=== PATIENT | female | born 1990 | race Caucasian/White ===

== ENCOUNTER 2018-04-21 06:10 | Emergency (ER) | payer MEDICAID, OTHER ==
[~2018-04-21] VITALS: Ht 152.4 cm; Wt 44.0 kg
[~2018-04-21 06:10] MED LIST: ACE325RS; AZIT200S
[2018-04-21 06:30] VITALS: BP 105/70
[2018-04-21] MEDS ORDERED: KETOROLAC TROMETH 60MG/2ML VIAL IM ONE (07:15)
== END 2018-04-21 07:58 | disposition home or self-care (01) ==
LOC: ER 06:10
DX: S80.02XA Contusion of left knee, initial encounter (principal); F17.210 Nicotine dependence, cigarettes, uncomplicated; Z79.899 Other long term (current) drug therapy; Z88.1 Allergy status to other antibiotic agents; Z88.8 Allergy status to other drugs, medicaments and biological substances; W22.8XXA Striking against or struck by other objects, initial encounter; Y93.89 Activity, other specified; Y99.8 Other external cause status; Y92.89 Other specified places as the place of occurrence of the external cause
CPT/HCPCS: 73562; 96372; 99284; J1885

== ENCOUNTER 2018-09-12 18:02 | Emergency (ER) | payer MEDICAID ==
[~2018-09-12] VITALS: Ht 152.4 cm; Wt 40.8 kg
[2018-09-12 18:08] VITALS: BP 135/87
[2018-09-12] MEDS ORDERED: LORazepam 0.5 MG TAB ONE (18:14)
[2018-09-12] MEDS ORDERED: LORazepam 0.5 MG TAB PO ONE (18:15)
== END 2018-09-12 19:32 | disposition home or self-care (01) ==
LOC: ER 18:03
DX: F41.1 Generalized anxiety disorder (principal); F45.8 Other somatoform disorders; F17.210 Nicotine dependence, cigarettes, uncomplicated; Z88.1 Allergy status to other antibiotic agents; Z88.8 Allergy status to other drugs, medicaments and biological substances; Z79.899 Other long term (current) drug therapy
CPT/HCPCS: 93005

== ENCOUNTER 2018-12-09 01:22 | Emergency (ER) | payer MEDICAID ==
[~2018-12-09] VITALS: Ht 152.4 cm; Wt 42.2 kg
[2018-12-09 01:29] VITALS: BP 117/78
== END 2018-12-09 02:23 | disposition left against medical advice (07) ==
LOC: ER 01:26
DX: F41.9 Anxiety disorder, unspecified (principal); Z53.21 Procedure and treatment not carried out due to patient leaving prior to being seen by health care provider

== ENCOUNTER 2019-01-02 15:43 | Emergency (ER) | payer MEDICAID ==
[~2019-01-02] VITALS: Ht 152.4 cm; Wt 40.8 kg
[2019-01-02 16:39] LABS: Basophils # (auto) 0.1 uL; Basophils % (auto) 0.8 % (0.0-2.0); Eosinophils # (auto) 0.3 uL; Eosinophils % (auto) 3.5 % (0.0-7.0); Hematocrit 42.4 % (36.0-46.0); Hemoglobin 14.4 g/dL (12.2-16.2); Lymphocytes % (auto) 25.8 % (10.0-50.0); Mean Corpuscular Hemoglobin 30.5 pg (28.0-32.0); Mean Corpuscular Volume 89.8 fL (80.0-100.0); Monocytes # (auto) 0.5 uL; Monocytes % (auto) 6.3 % (0.0-12.0); Neutrophils % (auto) 63.6 % (37.0-80.0); Platelet Count (auto) 302 10^3/uL (140-450); Red Blood Cells 4.73 10^6/uL (4.0-5.20); White Blood Cell 7.8 10^3/uL (4.4-10.8)
[2019-01-02 16:54] LABS: Albumin 3.8 g/dL (3.4-5.0); Calcium 9.1 mg/dL (8.5-10.1); Potassium 3.5 mmol/L (3.5-5.1)
[2019-01-02 16:57] LABS: BUN/Creatinine Ratio 13.9; Bilirubin, Total 0.3 mg/dL (0.2-1.0); Total Protein 7.8 g/dL (6.4-8.2)
[2019-01-02 18:49] VITALS: BP 102/69
[2019-01-02] MEDS ORDERED: BACLOFEN 10 MG TAB PO ONE (19:15)
[2019-01-02] MEDS ORDERED: ACETAMINOPHEN/CODEINE#3 (300/30mg) TAB PO ONE (19:15)
== END 2019-01-02 19:40 | disposition home or self-care (01) ==
LOC: ER 15:43
DX: S06.0X0A Concussion without loss of consciousness, initial encounter (principal); F17.210 Nicotine dependence, cigarettes, uncomplicated; Z88.1 Allergy status to other antibiotic agents; Z88.8 Allergy status to other drugs, medicaments and biological substances; W22.8XXA Striking against or struck by other objects, initial encounter; Y93.89 Activity, other specified; Y99.8 Other external cause status; Y92.89 Other specified places as the place of occurrence of the external cause
CPT/HCPCS: 36415; 70450; 80053; 84702; 85025

== ENCOUNTER 2019-03-14 12:47 | Emergency (ER) | payer MEDICAID ==
[~2019-03-14] VITALS: Ht 152.4 cm; Wt 42.8 kg
[2019-03-14 14:11] LABS: Urine Bacteria NONE SEEN /hpf (None Seen); Urine Blood Negative /uL (Negative); Urine Specific Gravity 1.012 (1.001-1.035); Urine WBC 4 /hpf (0 - 5)
[2019-03-14 14:51] LABS: Basophils # (auto) 0.1 uL; Basophils % (auto) 0.8 % (0.0-2.0); Eosinophils # (auto) 0.2 uL; Eosinophils % (auto) 2.3 % (0.0-7.0); Hematocrit 41.3 % (36.0-46.0); Hemoglobin 14.3 g/dL (12.2-16.2); Lymphocytes # (auto) 1.9 uL; Lymphocytes % (auto) 19.4 % (10.0-50.0); Mean Corpuscular Hemoglobin 30.6 pg (28.0-32.0); Mean Corpuscular Hgb Conc. 34.5 g/dL (32.0-36.0); Mean Corpuscular Volume 88.6 fL (80.0-100.0); Monocytes # (auto) 0.5 uL; Neutrophils % (auto) 72.5 % (37.0-80.0); Platelet Count (auto) 326 10^3/uL (140-450); Red Blood Cells 4.67 10^6/uL (4.0-5.20); Red Cell Distribution Width 13.3 % (11.8-14.3); White Blood Cell 9.6 10^3/uL (4.4-10.8)
[2019-03-14 14:52] VITALS: BP 107/65
[2019-03-14 15:17] LABS: Albumin 3.9 g/dL (3.4-5.0); Calcium 9.8 mg/dL (8.5-10.1); Potassium 3.9 mmol/L (3.5-5.1)
[2019-03-14 15:20] LABS: Bilirubin, Total 0.2 mg/dL (0.2-1.0); Total Protein 7.9 g/dL (6.4-8.2)
== END 2019-03-14 16:09 | disposition home or self-care (01) ==
LOC: ER 12:47
DX: R10.84 Generalized abdominal pain (principal); R11.2 Nausea with vomiting, unspecified; Z87.891 Personal history of nicotine dependence; Z88.1 Allergy status to other antibiotic agents
CPT/HCPCS: 36415; 74018; 80053; 81001; 81025; 84702; 85025

== ENCOUNTER 2019-04-25 07:42 | Emergency (ER) | payer MEDICAID ==
[~2019-04-25] VITALS: Ht 154.9 cm; Wt 44.0 kg
[2019-04-25 07:48] VITALS: BP 122/64
== END 2019-04-25 09:11 | disposition home or self-care (01) ==
LOC: ER 07:44
DX: S90.31XA Contusion of right foot, initial encounter (principal); F17.210 Nicotine dependence, cigarettes, uncomplicated; Z88.8 Allergy status to other drugs, medicaments and biological substances; Z88.1 Allergy status to other antibiotic agents; X58.XXXA Exposure to other specified factors, initial encounter; Y93.89 Activity, other specified; Y92.89 Other specified places as the place of occurrence of the external cause; Y99.8 Other external cause status
CPT/HCPCS: 73630

== ENCOUNTER 2019-08-25 11:42 | Emergency (ER) | payer MEDICAID ==
[~2019-08-25] VITALS: Ht 152.4 cm; Wt 45.4 kg
[2019-08-25 11:58] VITALS: BP 145/79
[2019-08-25] MEDS ORDERED: KETOROLAC TROMETH 60MG/2ML VIAL IM ONE (12:45)
== END 2019-08-25 13:10 | disposition home or self-care (01) ==
LOC: ER 11:42
DX: S16.1XXA Strain of muscle, fascia and tendon at neck level, initial encounter (principal); S29.012A Strain of muscle and tendon of back wall of thorax, initial encounter; Z87.891 Personal history of nicotine dependence; Z88.1 Allergy status to other antibiotic agents; Z88.8 Allergy status to other drugs, medicaments and biological substances; X50.1XXA Overexertion from prolonged static or awkward postures, initial encounter; Y93.89 Activity, other specified; Y92.098 Other place in other non-institutional residence as the place of occurrence of the external cause; Y99.8 Other external cause status
CPT/HCPCS: 72040; 72070; 96372; 99284; J1885

== ENCOUNTER 2020-10-24 18:20 | Emergency (ER) | payer MEDICAID ==
[~2020-10-24] VITALS: Ht 165.1 cm; Wt 40.8 kg
[2020-10-24 18:20] VITALS: BP 125/83
== END 2020-10-24 21:00 | disposition left against medical advice (07) ==
LOC: ER 18:23
DX: L29.9 Pruritus, unspecified (principal); J02.9 Acute pharyngitis, unspecified; Z53.21 Procedure and treatment not carried out due to patient leaving prior to being seen by health care provider

== ENCOUNTER 2021-11-07 18:13 | Emergency (ER) | payer MEDICAID ==
[~2021-11-07] VITALS: Ht 152.4 cm; Wt 45.4 kg
[2021-11-07 18:14] VITALS: BP 132/80
== END 2021-11-07 18:39 | disposition left against medical advice (07) ==
LOC: ER 18:13
DX: M54.50 Low back pain, unspecified (principal); Z53.21 Procedure and treatment not carried out due to patient leaving prior to being seen by health care provider

== ENCOUNTER 2022-06-02 15:02 | Emergency (ER) | payer MEDICAID ==
[~2022-06-02] VITALS: Ht 152.4 cm; Wt 48.0 kg
[2022-06-02 15:50] VITALS: BP 119/81
== END 2022-06-02 20:41 | disposition home or self-care (01) ==
LOC: ER 15:02
DX: S93.402A Sprain of unspecified ligament of left ankle, initial encounter (principal); F41.9 Anxiety disorder, unspecified; Z90.89 Acquired absence of other organs; Z88.1 Allergy status to other antibiotic agents; Z88.8 Allergy status to other drugs, medicaments and biological substances; Z87.891 Personal history of nicotine dependence; X50.1XXA Overexertion from prolonged static or awkward postures, initial encounter; Y93.89 Activity, other specified; Y92.89 Other specified places as the place of occurrence of the external cause; Y99.8 Other external cause status
CPT/HCPCS: 73610

== ENCOUNTER 2023-03-04 16:23 | Emergency (ER) | payer MEDICAID ==
[~2023-03-04] VITALS: Ht 165.1 cm; Wt 50.0 kg
[2023-03-04 16:37] VITALS: BP 138/82; PULSE 109; RESP 20; O2SAT 99
[2023-03-04 18:46] LABS: Urine Bacteria FEW /hpf (None Seen); Urine Blood Negative /uL (Negative); Urine Clarity Clear (Clear); Urine Color Colorless (Yellow); Urine Mucus FEW (None Seen); Urine Protein, UAD Negative (Negative); Urine Specific Gravity 1.003 (1.001-1.035); Urine Urobilinogen Normal (Negative); Urine WBC <1 /hpf (0 - 5); Urine pH 6.5 (5.0-8.0)
== END 2023-03-04 21:09 | disposition left against medical advice (07) ==
LOC: ER 16:23
DX: T78.49XA Other allergy, initial encounter (principal); Z53.21 Procedure and treatment not carried out due to patient leaving prior to being seen by health care provider; Y92.89 Other specified places as the place of occurrence of the external cause
CPT/HCPCS: 81001